=== PATIENT | female | born 1960 | race Caucasian/White ===

== ENCOUNTER 2017-10-26 12:59 | Emergency (ER) | payer BC ==
--- NOTE | 2017-10-26 13:14 | EDM.PDOC ---
ED HPI GENERAL MEDICAL PROBLEM - General Chief Complaint: Lower Extremity Injury/Pain Stated Complaint: RIGHT ANKLE INJURY Time Seen by Provider: 10/26/17 13:10 Source of Information: Reports: Patient History Limitations: Reports: No Limitations - History of Present Illness INITIAL COMMENTS - FREE TEXT/NARRATIVE: 57-year-old female presents for evaluation and treatment of injury to the right ankle. Injury occurred about 30 minutes prior to arrival in the ER. Patient reports she was on a ladder. Estimates to be 5 feet off of the ground. Reports the ladder gave out from underneath her and she landed on both of her feet. She is primarily complaining of pain to the right lateral ankle. She denies any head trauma or neck trauma. She does not believe she inverted her ankle. She reports pain with ambulation. No numbness or tingling to the foot or ankle. Onset: Today Location: Reports: Lower Extremity, Right (right ankle) Right Ankle Pain Score (Numeric/FACES): 8 - Related Data Allergies Allergy/AdvReac Type Severity Reaction Status Date / Time acetaminophen [From Tylenol] Allergy Vomiting Verified 10/26/17 13:06 morphine Allergy Vomiting Verified 10/26/17 13:06 Home Meds: Home Meds . [No Known Home Meds] 12/26/13 [History] Review of Systems - Review of Systems Review Of Systems: See Below Musculoskeletal: Reports: Joint Pain (left ankle swelling), Joint Swelling ( left ankle swelling). Denies: Neck Pain Skin: Denies: Bruising, Wound Neurological: Reports: Difficulty Walking (due to pain to the right ankle). Denies: Headache, Numbness, Syncope, Tingling ED EXAM, GENERAL - Physical Exam Exam: See Below Exam Limited By: No Limitations General Appearance: Alert, WD/WN, No Apparent Distress Throat/Mouth: Normal Inspection, Normal Voice, No Airway Compromise Neck: Normal Inspection Respiratory/Chest: No Respiratory Distress Cardiovascular: Normal Peripheral Pulses, Regular Rate, Rhythm Peripheral Pulses: 3+: Posterior Tibial (L), Posterior Tibial (R), Dorsalis Pedis (L), Dorsalis Pedis (R) Extremities: Normal Inspection, Normal Capillary Refill, Joint Swelling (right lateral ankle), Limited Range of Motion (able to wiggle toes but reports pain, unable to fully test ROM due to pain), Other (tenderness to the distal right lateral malleolus, pain to the calcaneal fibular ligament) Neurological: Alert, Oriented, Normal Cognition Psychiatric: Normal Affect, Normal Mood Skin Exam: Warm, Dry, Normal Color. No: Ecchymosis Course - Vital Signs Last Recorded V/S: Last Vital Signs Temp 96.5 F 10/26/17 13:04 Pulse 97 10/26/17 13:04 Resp 17 10/26/17 13:04 BP 126/70 10/26/17 13:04 Pulse Ox 96 10/26/17 13:04 - Orders/Labs/Meds Orders: Active Orders 24 hr Category Date Time Status Ankle Min 3V Rt [CR] Stat Exams 10/26/17 13:13 Taken - Radiology Interpretation Free Text/Narrative:: X-ray of the right ankle shows no acute fractures or dislocations. - Re-Assessments/Exams Free Text/Narrative Re-Assessment/Exam: 10/26/17 13:37 I reviewed the x-ray results with patient. She has pain at the calcaneofibular ligament. I Feel this is likely an ankle sprain. I'm recommending crutches, Bora wrap, ice, Tylenol and Motrin as needed for pain. Follow-up in the clinic if not much better within 1 week. Discharge instructions as documented. Departure - Departure Time of Disposition: 13:38 Disposition: Home, Self-Care 01 Condition: Fair Clinical Impression: Ankle sprain Qualifiers: Encounter type: initial encounter Involved ligament of ankle: calcaneofibular ligament Laterality: right Qualified Code(s): S93.411A - Sprain of calcaneofibular ligament of right ankle, initial encounter - Discharge Information *PRESCRIPTION DRUG MONITORING PROGRAM REVIEWED*: No *COPY OF PRESCRIPTION DRUG MONITORING REPORT IN PATIENT GUZMAN: No Instructions: Ankle Sprain, [id number] Referrals: Yousif Hayden MD [Primary Care Provider] - Forms: ED Department Discharge Additional Instructions: Recommend using crutches and an Bora wrap for the next week. Ice and elevation as much as possible. [id number] Tylenol or Motrin as needed for pain. If your symptoms have not improved much within 1 week, follow-up with your primary care provider. Please return to the ER if your symptoms change or worsen. - My Orders Last 24 Hours: My Active Orders 10/26/17 13:13 Ankle Min 3V Rt [CR] Stat - Assessment/Plan Last 24 Hours: My Active Orders 10/26/17 13:13 Ankle Min 3V Rt [CR] Stat
--- NOTE | 2017-10-28 12:32 | CR ---
Right ankle: Four views of the right ankle were obtained. Comparison: No prior right ankle study. Ankle mortise is symmetric. Plantar spur is noted. Lucencies seen within the anterior calcaneus with central area of sclerosis possibly due to bone lesion which is likely benign. There is a small sclerotic area more posteriorly within the calcaneus and difficult to exclude minimal impacted fracture. No additional abnormality is seen. Impression: 1. Plantar spur. 2. Possible bone lesion within the anterior calcaneus most likely benign. 3. Small sclerotic area possibly due to minimally impacted fracture within the mid calcaneus. CT would be needed to confirm if clinically indicated. Diagnostic code #3
== END 2017-10-26 13:45 | disposition home or self-care (01) ==
LOC: JD.ED 12:59
DX: S93.411A Sprain of calcaneofibular ligament of right ankle, initial encounter (principal); Z88.8 Allergy status to other drugs, medicaments and biological substances; X50.0XXA Overexertion from strenuous movement or load, initial encounter; Z88.5 Allergy status to narcotic agent
CPT/HCPCS: 73610-26-RT; 73610-RT; 99283; 99284

== ENCOUNTER 2020-05-31 10:59 | Emergency (ER) | payer BC, OTHER ==
--- NOTE | 2020-05-31 11:29 | EDM.PDOC ---
ED HPI GENERAL MEDICAL PROBLEM - General Chief Complaint: Lower Extremity Injury/Pain Stated Complaint: [facility] Time Seen by Provider: 05/31/20 11:04 Source of Information: Reports: Patient History Limitations: Reports: No Limitations - History of Present Illness INITIAL COMMENTS - FREE TEXT/NARRATIVE: 59-year-old female presents via emergency department via [facility] after falling off a stepstool just prior to arrival. The patient reports that she was at work on a stepstool that was 2 steps high and was pulling labels off of the refrigerator. The patient states that one of the labels pulled off easier than expected in the stool slipped laterally to the left and she fell onto her right side bracing herself with her right arm outstretched and then she states her right leg got caught in the stool as she was falling. The patient denies hitting her head or losing consciousness. She denies being on blood thinners or any prescription medications for that matter. She has an obvious deformity noted to her right wrist. Radial pulse still present. She still has positive CMS. Does not report any pain in the humerus area. She is still able to wiggle her fingers on that right hand. There is also a slight deformity noted to the tibial area just below the knee. Patient states she has burning pain in the medial tibia that radiates distally. CMS is still positive to her lower extremity as well. And she is still able to wiggle her toes. Pulses are palpable. Patient's only significant history is arthritis for which she takes [id number] Excedrin. She also reports cardiac ablation approximately 14 years ago. Onset: Today, Sudden Right Arm Pain Score (Numeric/FACES): 8 Right Leg Pain Score (Numeric/FACES): 8 - Related Data Allergies Allergy/AdvReac Type Severity Reaction Status Date / Time acetaminophen [From Tylenol] Allergy Vomiting Verified 05/31/20 11:13 morphine Allergy Vomiting Verified 05/31/20 11:13 Home Meds: Home Meds . [No Known Home Meds] 12/26/13 [History] Past Medical History Cardiovascular History: Reports: Afib Musculoskeletal History: Reports: Fracture - Infectious Disease History Infectious Disease History: Reports: Novel Coronavirus - Past Surgical History Cardiovascular Surgical History: Reports: Cardiac Ablation Other Musculoskeletal Surgeries/Procedures:: Right hand surgery Social & Family History - Family History Family Medical History: No Pertinent Family History - Tobacco Use Tobacco Use Status *Q: Current Every Day Tobacco User Years of Tobacco use: 40 Packs/Tins Daily: 0.1 - Caffeine Use Caffeine Use: Reports: Coffee Other Caffeine Use: daily Review of Systems - Review of Systems Review Of Systems: Comprehensive ROS is negative, except as noted in HPI. ED EXAM, GENERAL - Physical Exam Exam: See Below Exam Limited By: No Limitations General Appearance: Alert, WD/WN, Mild Distress Ears: Normal External Exam, Hearing Grossly Normal Nose: Normal Inspection, No Blood Throat/Mouth: Normal Inspection, Normal Lips, Normal Voice, No Airway Compromise Head: Atraumatic, Normocephalic Neck: Normal Inspection, Supple, Non-Tender, Full Range of Motion Respiratory/Chest: No Respiratory Distress, Lungs Clear, Normal Breath Sounds, No Accessory Muscle Use, Chest Non-Tender Cardiovascular: Normal Peripheral Pulses, Regular Rate, Rhythm, No Edema, No Murmur Peripheral Pulses: 2+: Radial (L), Radial (R), Dorsalis Pedis (L), Dorsalis Pedis (R) GI/Abdominal: Normal Bowel Sounds, Soft, Non-Tender, No Distention (Female) Exam: Deferred Rectal (Female) Exam: Deferred Back Exam: Normal Inspection. No: Vertebral Tenderness Extremities: No: Normal Inspection (Obvious deformity noted to right wrist; slight deformity noted to right proximal tibial area the medial aspect just below the knee.), Normal Range of Motion, Non-Tender Neurological: Alert, Oriented, Normal Cognition Psychiatric: Normal Affect, Normal Mood Skin Exam: Warm, Dry, Intact, No Rash, Pallor Lymphatic: No Adenopathy #1 Interpretation EKG Date: 05/31/20 Time: 12:26 Rhythm: NSR Rate (Beats/Min): 83 [place]: Normal P-Wave: Present QRS: Normal ST-T: Normal QT: Normal Comparison: NA - No Prior EKG EKG Interpretation Comments: Per Dr. Sosa interpretation: Sinus rhythm at 83 bpm, borderline criteria for left ventricular hypertrophy, consider left atrial hypertrophy, QTC minimal prolonged, T wave flattening aVL, V4 through V5 is nonspecific Course - Vital Signs Text/Narrative:: 5-year-old female fell off a stepstool just prior to arrival. [facility] was called to transport the patient. Patient does have an obvious deformity noted to the right wrist with pulses and CMS still present. A splint is in place from [facility]. She also has a slight deformity noted to her proximal tibial area right leg is rotated medially from the tibia to the toes. CMS is positive and pulses are present. Patient denies taking any prescription medications. She did receive fentanyl 50 mics IV prior to arrival by [facility]. Patient states her pain is fairly well controlled at this time. I have ordered x-rays. Full assessment does not reveal any other injuries. Last Recorded V/S: Last Vital Signs Temp 97.0 F 05/31/20 11:10 Pulse 74 05/31/20 11:10 Resp 18 05/31/20 11:10 BP 108/71 05/31/20 11:10 Pulse Ox 95 05/31/20 11:10 - Orders/Labs/Meds Orders: Active Orders 24 hr Category Date Time Status EKG Documentation Completion [RC] ASDIRECTED Care 05/31/20 12:11 Active Sodium Chloride 0.9% [Saline Flush] Med 05/31/20 12:00 Active 10 ml FLUSH ASDIRECTED PRN DME for Discharge [COMM] Stat Oth 05/31/20 13:30 Ordered Saline Lock Insert [OM.PC] Stat Oth 05/31/20 12:00 Ordered EKG 12 Lead [EK] Stat Ther 05/31/20 12:11 Ordered Medication Orders Sodium Chloride (Sodium Chloride 0.9% 10 Ml Syringe) 10 ml FLUSH ASDIRECTED PRN PRN Reason: Keep Vein Open Last Admin: 05/31/20 12:20 Dose: 10 ml Documented by: SATISH Labs: Laboratory Tests 05/31/20 05/31/20 05/31/20 Range/Units 12:18 12:18 12:18 WBC 10.53 H (3.98-10.04) K/mm3 RBC 4.50 (3.98-5.22) M/mm3 Hgb 13.1 (11.2-15.7) gm/dl Hct 40.6 (34.1-44.9) % MCV 90.2 (79.4-94.8) fl MCH 29.1 (25.6-32.2) pg MCHC 32.3 (32.2-35.5) g/dl RDW Std Deviation 41.6 (36.4-46.3) fL Plt Count 284 (182-369) K/mm3 MPV 9.3 L (9.4-12.3) fl Neut % (Auto) 83.0 H (34.0-71.1) % Lymph % (Auto) 9.7 L (19.3-51.7) % Long % (Auto) 6.2 (4.7-12.5) % Eos % (Auto) 0.5 L (0.7-5.8) Baso % (Auto) 0.4 (0.1-1.2) % Neut # (Auto) 8.75 H (1.56-6.13) K/mm3 Lymph # (Auto) 1.02 L (1.18-3.74) K/mm3 Long # (Auto) 0.65 H (0.24-0.36) K/mm3 Eos # (Auto) 0.05 (0.04-0.36) K/mm3 Baso # (Auto) 0.04 (0.01-0.08) K/mm3 Manual Slide Review Normal smear PT 11.0 (9.7-12.0) SECONDS INR 1.03 APTT 25.8 (21.7-31.4) SECONDS Sodium 140 (136-145) mEq/L Potassium 4.5 (3.5-5.1) mEq/L Chloride 105 (98-107) mEq/L Carbon Dioxide 26 (21-32) mEq/L Anion Gap 13.5 (5-15) BUN 18 (7-18) mg/dL Creatinine 1.0 (0.55-1.02) mg/dL Est Cr Clr Drug Dosing 42.97 mL/min Estimated GFR (MDRD) 57 (>60) mL/min BUN/Creatinine Ratio 18.0 (14-18) Glucose 132 H (74-106) mg/dL Calcium 8.7 (8.5-10.1) mg/dL Magnesium 1.9 (1.8-2.4) mg/dl Total Bilirubin 0.2 (0.2-1.0) mg/dL AST 14 L (15-37) U/L ALT 17 (14-59) U/L Alkaline Phosphatase 88 (46-116) U/L Total Protein 7.3 (6.4-8.2) g/dl Albumin 4.0 (3.4-5.0) g/dl Globulin 3.3 gm/dL Albumin/Globulin Ratio 1.2 (1-2) SARS-CoV-2 RNA (CE[facility]) (NEGATIVE) 05/31/20 Range/Units 12:30 WBC (3.98-10.04) K/mm3 RBC (3.98-5.22) M/mm3 Hgb (11.2-15.7) gm/dl Hct (34.1-44.9) % MCV (79.4-94.8) fl MCH (25.6-32.2) pg MCHC (32.2-35.5) g/dl RDW Std Deviation (36.4-46.3) fL Plt Count (182-369) K/mm3 MPV (9.4-12.3) fl Neut % (Auto) (34.0-71.1) % Lymph % (Auto) (19.3-51.7) % Long % (Auto) (4.7-12.5) % Eos % (Auto) (0.7-5.8) Baso % (Auto) (0.1-1.2) % Neut # (Auto) (1.56-6.13) K/mm3 Lymph # (Auto) (1.18-3.74) K/mm3 Long # (Auto) (0.24-0.36) K/mm3 Eos # (Auto) (0.04-0.36) K/mm3 Baso # (Auto) (0.01-0.08) K/mm3 Manual Slide Review PT (9.7-12.0) SECONDS INR APTT (21.7-31.4) SECONDS Sodium (136-145) mEq/L Potassium (3.5-5.1) mEq/L Chloride (98-107) mEq/L Carbon Dioxide (21-32) mEq/L Anion Gap (5-15) BUN (7-18) mg/dL Creatinine (0.55-1.02) mg/dL Est Cr Clr Drug Dosing mL/min Estimated GFR (MDRD) (>60) mL/min BUN/Creatinine Ratio (14-18) Glucose (74-106) mg/dL Calcium (8.5-10.1) mg/dL Magnesium (1.8-2.4) mg/dl Total Bilirubin (0.2-1.0) mg/dL AST (15-37) U/L ALT (14-59) U/L Alkaline Phosphatase (46-116) U/L Total Protein (6.4-8.2) g/dl Albumin (3.4-5.0) g/dl Globulin gm/dL Albumin/Globulin Ratio (1-2) SARS-CoV-2 RNA ([facility]) Negative (NEGATIVE) Meds: Medications Generic Name Dose Route Start Last Admin Trade Name Freq PRN Reason Stop Dose Admin Sodium Chloride 10 ml 05/31/20 12:00 05/31/20 12:20 Sodium Chloride 0.9% 10 Ml Syringe FLUSH 10 ml ASDIRECTED PRN Administration Keep Vein Open - Re-Assessments/Exams Free Text/Narrative Re-Assessment/Exam: 05/31/20 12:[address] Michel, orthopedic surgeon to review the patient's xrays. After review of the xrays, he feels that it would be beyond his scope of practice. I have ordered labs and a covid swab as the patient will need to be transferred to a higher level of care. I visited with the patient regarding the plan of care and she is agreeable. I offered to place a shannon catheter in the patient and she refuses to have a catheter at this time. 05/31/20 12:[address] [facility] one call to speak to the orthopedic surgeon superintendent stations and have him review of the patient's scans. He is currently on surgery and he will be returning my call once he is done. Patient is questioning why she needs to have lab work drawn. I did visit with her and reiterated she will need all this prior to surgery and she is agreeable. Patient is declining pain medication at this time. She states her pain is rated an 18 out of 10 however she is still refusing. 05/31/20 12:57 Patient is refusing to allow nursing staff to do nasopharyngeal Covid swab. I went in and discussed with the patient the need for this. She is very angry and argumentative with me and nursing staff. She states that it is ridiculous that we cannot do the oral swab and get the results back in 5 minutes as this is the test she recently had done for Covid. I did discuss with her the fact that this was a facility policy to use this type of Covid swab and after a short bit of discussion she was finally agreeable however I do not feel I got a good nasal pharyngeal culture. Patient states that she will not allow me to attempt to reculture her. Patient then states that from laying in the bed the way she is she states that she feels like her hip is dislocating as she says this has happened in the past. She is very angry. I notified her that we could very well put her right lower extremity in an immobilizer brace however this is going to be exquisitely painful to do this. I again offered her pain medication and she is refusing it at this time. She is also refusing to allow me to put her in an immobilizer brace. She states that she will just sit there as is however she will be angry if she develops sciatic pain. I strongly do not feel like there is much that I can do to accommodate or make this patient happy. 05/31/20 13:03 Hematology reveals a WBC of 10.53, hemoglobin 13.1, hematocrit 40.6, platelet count 284, Coagulation reveals a pro time of 11.0, INR 1.03, PTT 25.8 Chemistry reveals a sodium of 140, potassium of 4.5, anion gap 13.5, BUN 18, creatinine 1.0, glucose 132, magnesium 1.9, AST 14, ALT 17, alk phos 88 05/31/20 13:41 Dr. Christensen, orthopedic surgeon, [facility] in [place] returning my call. He has reviewed the patient's x-rays that we have sent to him and he states he will accept the patient in transfer. Request that we put the patient in a right knee immobilizer brace and right wrist immobilizer brace however I did discuss this with the patient and she is also refusing to allow us to do this with her at this time. I have again offered to give her pain medications and she is refusing. Nursing staff is lining up the transport for the patient asked [facility] does not have any other readings available to transport the patient at this time. 05/31/20 14:32 Covid test does come back negative however as stated before I do not know how accurate this test is as I did not get a good nasopharyngeal swab from the patient. Departure - Departure Time of Disposition: 14:55 Disposition: DC/Tfer to Acute Hospital 02 Condition: Fair Clinical Impression: Right radial fracture Qualifiers: Encounter type: initial encounter Radius location: distal Fracture type: closed Fracture morphology: unspecified fracture morphology Qualified Code(s): S52.501A - Unspecified fracture of the lower end of right radius, initial encounter for closed fracture Fracture of right tibia and fibula Qualifiers: Encounter type: initial encounter Fracture type: closed Qualified Code(s): S82.201A - Unspecified fracture of shaft of right tibia, initial encounter for closed fracture; S82.401A - Unspecified fracture of shaft of right fibula, initial encounter for closed fracture - Discharge Information Referrals: Yousif Hayden MD [Primary Care Provider] - Forms: ED Department Discharge Sepsis Event Note (ED) - Evaluation Sepsis Screening Result: No Definite Risk - Focused Exam Vital Signs: Vital Signs Temp Pulse Resp BP Pulse Ox 05/31/20 11:10 97.0 F 74 18 108/71 95 - My Orders Last 24 Hours: My Active Orders 05/31/20 12:00 Sodium Chloride 0.9% [Saline Flush] 10 ml FLUSH ASDIRECTED PRN Saline Lock Insert [OM.PC] Stat 05/31/20 12:11 EKG Documentation Completion [RC] ASDIRECTED EKG 12 Lead [EK] Stat 05/31/20 13:30 DME for Discharge [COMM] Stat - Assessment/Plan Last 24 Hours: My Active Orders 05/31/20 12:00 Sodium Chloride 0.9% [Saline Flush] 10 ml FLUSH ASDIRECTED PRN Saline Lock Insert [OM.PC] Stat 05/31/20 12:11 EKG Documentation Completion [RC] ASDIRECTED EKG 12 Lead [EK] Stat 05/31/20 13:30 DME for Discharge [COMM] Stat
[2020-05-31] MEDS ORDERED: Sodium Chloride 0.9% 10 ML Syringe FLUSH PRN (12:00)
--- NOTE | 2020-05-31 12:08 | CR ---
Right forearm: 2 views of the right forearm were obtained. Fracture is identified within the distal radius with posterior displacement and posterior impaction causing dorsal tilt of the distal radial articular margin. There is posterior displacement measuring approximately 9 mm. Ununited ulnar styloid process fracture is seen which may be old. Mild joint space narrowing is seen within the distal navicular bone. Fairly severe degenerative change is seen within the CMC joint of the thumb. Soft tissue swelling is noted. Impression: 1. Displaced and angulated distal right radial fracture. 2. Probable old fracture within the ulnar styloid process. 3. Other findings as noted above. Diagnostic code #3
--- NOTE | 2020-05-31 12:08 | CR ---
Right humerus: 2 views of the right humerus were obtained. No acute fracture, dislocation or other bony abnormality is appreciated. Impression: 1. Nothing acute is seen on right humerus study. Diagnostic code #1
--- NOTE | 2020-05-31 12:12 | CR ---
Right tibia and fibula: AP and lateral views of the right tibia and fibula were obtained. Comparison: Numerous right ankle x-rays from 2018. Small plantar spur is seen. Minimal spurring is noted at the attachment of the Achilles tendon to the calcaneus. Fracture is identified within the proximal tibia with extension into the lateral tibial plateau causing significant deformity of the tibial plateau. Fracture is comminuted. Fracture is also noted within the fibular head. No additional fracture or other abnormality is appreciated. Impression: 1. Comminuted proximal tibial fracture with extension into the lateral tibial plateau causing significant deformity. 2. Fracture within the fibular head. 3. Incidental calcaneal spurs Diagnostic code #3
== END 2020-05-31 15:09 ==
LOC: JD.ED 10:59
DX: S52.501A Unspecified fracture of the lower end of right radius, initial encounter for closed fracture (principal); S82.141A Displaced bicondylar fracture of right tibia, initial encounter for closed fracture; S82.831A Other fracture of upper and lower end of right fibula, initial encounter for closed fracture; Z88.6 Allergy status to analgesic agent; Z20.822 Contact with and (suspected) exposure to COVID-19; Z72.0 Tobacco use; Z88.5 Allergy status to narcotic agent; W08.XXXA Fall from other furniture, initial encounter
CPT/HCPCS: 36415; 73060-26-RT; 73060-RT; 73090-26-RT; 73090-RT; 73590-26-RT; 73590-RT; 80053; 83735; 85025; 85610; 85730; 93005; 93010; 99285; 99285-25; U0002

== ENCOUNTER 2021-01-07 20:33 | Emergency (ER) | payer SELFPAY ==
--- NOTE | 2021-01-07 21:02 | EDM.PDOC ---
ED HPI GENERAL MEDICAL PROBLEM - General Chief Complaint: Back Pain or Injury Stated Complaint: BACK INJURY Time Seen by Provider: 01/07/21 20:52 Source of Information: Reports: Patient, RN Notes Reviewed History Limitations: Reports: No Limitations - History of Present Illness INITIAL COMMENTS - FREE TEXT/NARRATIVE: Patient is a 60-year-old female who presents to the ER for her low back injury. States that around 2 PM, she was doing some work, bent over when she felt a pop in her back. She states she stood up, and then her back has been stiff since then. Notes that it is difficult to walk/move much at all due to the pain. She took some extra strength pain reliever at home and this seemed to help a little bit. She is denying any numbness or tingling into her legs, also denying any loss of control of bowel or bladder. Patient denies any other sick-like symptoms, fever/chills, cough/shortness of breath, nausea/vomiting/diarrhea. - Related Data Allergies Allergy/AdvReac Type Severity Reaction Status Date / Time acetaminophen [From Tylenol] Allergy Vomiting Verified 05/31/20 11:13 morphine Allergy Vomiting Verified 05/31/20 11:13 Home Meds: Home Meds . [No Known Home Meds] 12/26/13 [History] Past Medical History Cardiovascular History: Reports: Afib Musculoskeletal History: Reports: Fracture - Infectious Disease History Infectious Disease History: Reports: Novel Coronavirus - Past Surgical History Cardiovascular Surgical History: Reports: Cardiac Ablation Other Musculoskeletal Surgeries/Procedures:: Right hand surgery Social & Family History - Family History Family Medical History: No Pertinent Family History - Caffeine Use Caffeine Use: Reports: Coffee Other Caffeine Use: daily ED ROS GENERAL - Review of Systems Review Of Systems: Comprehensive ROS is negative, except as noted in HPI. ED EXAM,LOWER BACK PAIN/INJURY - Physical Exam Exam: See Below Exam Limited By: No Limitations General Appearance: Alert, WD/WN, No Apparent Distress Respiratory/Chest: No Respiratory Distress, Lungs Clear, Normal Breath Sounds, No Accessory Muscle Use, Chest Non-Tender Cardiovascular: Normal Peripheral Pulses, Regular Rate, Rhythm, No Edema Back Exam: Muscle Spasm (on low back at level of iliac crest) Extremities: Normal Inspection, Normal Capillary Refill Neurological: Alert, Normal Mood/Affect, Normal Dorsiflexion, Normal Plantar Flexion, Normal Gait (but slower and cautious) Psychiatric: Normal Affect, Normal Mood Skin Exam: Warm, Dry, Intact, Normal Color, No Rash Course - Vital Signs Last Recorded V/S: Last Vital Signs Temp 97.2 F 01/07/21 20:53 Pulse 115 H 01/07/21 20:53 Resp 18 01/07/21 20:53 BP 168/86 H 01/07/21 20:53 Pulse Ox 95 01/07/21 20:53 - Re-Assessments/Exams Free Text/Narrative Re-Assessment/Exam: 01/07/21 21:03 Patient presents to the ER for evaluation of her low back pain/injury. I did offer to do lumbar x-rays, give her some Toradol and Norflex for management however she declined all of this, and simply requested a work note. Work note has been furnished patient will be discharged home. Departure - Departure Time of Disposition: 21:00 Disposition: Home, Self-Care 01 Condition: Good Clinical Impression: Low back pain Qualifiers: Chronicity: acute Back pain laterality: bilateral Sciatica presence: without sciatica Qualified Code(s): M54.50 - Low back pain, unspecified - Discharge Information *PRESCRIPTION DRUG MONITORING PROGRAM REVIEWED*: No *COPY OF PRESCRIPTION DRUG MONITORING REPORT IN PATIENT GUZMAN: No Instructions: Back Injury Prevention, [id number] Referrals: Yousif Hayden MD [Primary Care Provider] - Forms: ED Department Discharge, ED Return to Work/School Form Additional Instructions: You have been evaluated in the ED for your low back pain. A few pain meds were offered to you for management along with a muscle relaxer, and x-rays however you declined any of this at today's visit. Likely that you are suffering from a muscle strain and/or disc issues. Please use ice/heat as tolerated to the affected area. You may take Tylenol 500 mg or ibuprofen 600mg q6 hrs for pain relief. Please do so until you have a tolerable level of pain with activity. Do not exceed 4000mg Tylenol or 3200mg ibuprofen in a 24 hour time period. Please follow-up with your regular provider for re-evaluation, if your injury is not feeling much better in roughly 7 to 10 days time. Please return to ED if your symptoms should change or worsen. Sepsis Event Note (ED) - Focused Exam Vital Signs: Vital Signs Temp Pulse Resp BP Pulse Ox 01/07/21 20:53 97.2 F 115 H 18 168/86 H 95
== END 2021-01-07 21:30 | disposition home or self-care (01) ==
LOC: JD.ED 20:33
DX: M54.50 Low back pain, unspecified (principal); I48.91 Unspecified atrial fibrillation; Z88.6 Allergy status to analgesic agent; Z88.5 Allergy status to narcotic agent; Z86.16 Personal history of COVID-19
CPT/HCPCS: 99283